=== PATIENT | female | born 1980 | race Hispanic/Latino ===

== ENCOUNTER → 2019-10-22 | Outpatient (CLI) | payer OTHER ==
--- NOTE | 2019-10-22 13:47 | Diagnostic Imaging Report ---
TECHNIQUE: 2 frontal images of the abdomen. HISTORY: ^[id number] ^[id number] ^CALCULUS OF KIDNEY. COMPARISON: None. IMPRESSION: Nonobstructive radiographic bowel gas pattern. No acute bony abnormality. No free air within the imaged abdomen. 1.9 cm calcific right upper quadrant density overlies the renal shadow and expected location of the gallbladder. Signed by: Shabbir Presley MD on 10/22/2019 1:44 PM
== END ==
LOC: RAD 12:30
PROVIDERS: ATTEND Urology
DX: N20.0 Calculus of kidney (principal)
CPT/HCPCS: 74018; 81025

== ENCOUNTER 2021-11-05 12:31 | Emergency (ER) | payer OTHER ==
[~2021-11-05] VITALS: Ht 165.1 cm; Wt 65.8 kg
[2021-11-05] MEDS ORDERED: ONDANSETRON HCL INJ 2MG/ML 2ML 2 MG/ML VIAL IV STA (12:44)
[2021-11-05] MEDS ORDERED: SODIUM CHLORIDE 0.9% 1000ML 1,000 ML IV STA (12:44)
[2021-11-05] MEDS ORDERED: KETOROLAC TROMETHAMINE 30 MG/ML VIAL IV STA (12:44)
[2021-11-05 12:55] LABS: BASOPHILS % 0.5 % (0.0-1.0); EOSINOPHILS # (AUTO) 0.1 (0.0-0.4); EOSINOPHILS % 1.5 % (0.0-6.0); HEMATOCRIT 39.5 % (34.2-44.1); HEMOGLOBIN 13.4 g/dL (12.0-16.0); LYMPHOCYTES # (AUTO) 2.1 (1.0-3.2); LYMPHOCYTES % 33.6 % (18.0-39.1); MEAN CORPUSCULAR HEMOGLOBIN 30.5 pg (28-32); MEAN CORPUSCULAR HGB CONC 33.9 g/dL (31-35); MONOCYTES # (AUTO) 0.4 (0.2-0.8); MONOCYTES % 6.7 % (4.4-11.3); NEUTROPHILS # (AUTO) 3.5 (2.1-6.9); NEUTROPHILS % 57.5 % (38.7-80.0); PLATELET COUNT 312 x10e3/uL (140-360); RED BLOOD COUNT 4.39 x10e6/uL (3.6-5.1); RED CELL DISTRIBUTION WIDTH 12.9 % (11.7-14.4)
[2021-11-05 13:09] LABS: CLARITY,URINE CLEAR (CLEAR); COLOR,URINE YELLOW (YELLOW); KETONES,URINE NEGATIVE (NEGATIVE); LEUKOCYTE ESTERASE ,URINE NEGATIVE (NEGATIVE); NITRITE,URINE NEGATIVE (NEGATIVE); PROTEIN,URINE DIPSTICK NEGATIVE (NEGATIVE); URINE UROBILINOGEN 0.2 mg/dL (0.2 - 1)
[2021-11-05 13:12] LABS: ALANINE AMINOTRANSFERASE 19 IU/L (0-55); ALBUMIN 3.8 g/dL (3.5-5.0); ALBUMIN/GLOBULIN RATIO 1.2 (0.8-2.0); ALKALINE PHOSPHATASE 79 IU/L (40-150); ANION GAP 11.5 mmol/L (8-16); BLOOD UREA NITROGEN 10 mg/dL (7-26); BUN/CREATININE RATIO 15 (6-25); CALCIUM 8.8 mg/dL (8.4-10.2); CARBON DIOXIDE 27 mmol/L (22-29); CHLORIDE 106 mmol/L (98-107); CREATININE, SERUM 0.67 mg/dL (0.57-1.11); EST GLOMERULAR FILTRATION RATE 96 ML/MIN (60-); GLUCOSE 115 mg/dL (74-118); POTASSIUM 4.5 mmol/L (3.5-5.1); SODIUM 140 mmol/L (136-145)
[2021-11-05 13:16] LABS: EPITHELIAL CELLS,URINE FEW /LPF; RBC,URINE 0-5 /HPF (0-5); WBC,URINE (MAN) 0-5 /HPF (0-5)
[2021-11-05] MEDS ORDERED: DICYCLOMINE HCL20 MG PO (14:52)
[2021-11-05] MEDS ORDERED: IBUPROFEN600 MG PO (14:52)
[2021-11-05 15:32] VITALS: BP 106/72
== END 2021-11-05 15:37 | disposition home or self-care (01) ==
LOC: ER 12:38
DX: R10.32 Left lower quadrant pain (principal)
CPT/HCPCS: 36415; 74176; 80053; 81001; 84702; 85025; 99284; J1885; J7030